=== PATIENT | female | born 1935 | race Caucasian/White ===

== ENCOUNTER → 2017-01-09 | Outpatient (CLI) | payer MEDICARE, BC ==
[~2017-01-09] MED LIST: ASPIRIN 32325 MG/TA1 PO; ASPIRIN 81M81 MG/TA2 PO; ASPIRIN E.C. 8181 MG PO; DYAZIDE 25 MG-31 CAP PO; LIPITOR 10MG10 MG PO; LOPRESSOR 550 MG/TAB PO; LOTENSIN 1010 MG/TAB PO; MAXZIDE-25MG TA1 TAB PO; NORCO 325 MG-7.1 TAB PO; STOOL SOFTENER100 M2 PO; TYLENOL 325MG325 MG PO; VITAMIN A; XALATAN EYE DROPS OP; [UNRECOGNIZED DRUG - OTHER]
== END ==
LOC: COL.RAD 13:19
DX: M25.512 Pain in left shoulder (principal); S46.812A Strain of other muscles, fascia and tendons at shoulder and upper arm level, left arm, initial encounter; X58.XXXA Exposure to other specified factors, initial encounter; J98.4 Other disorders of lung
CPT/HCPCS: A9585; Q9967

== ENCOUNTER → 2021-06-18 | Outpatient (CLI) | payer MEDICARE, BC | LOC: MC.RAD 10:14 | DX: Z12.31 Encounter for screening mammogram for malignant neoplasm of breast (principal); N63.0 Unspecified lump in unspecified breast ==